=== PATIENT | female | born 1985 | race Caucasian/White ===

== ENCOUNTER 2022-05-08 12:34 | Emergency (ER) | payer OTHER ==
[~2022-05-08] VITALS: Ht 162.6 cm; Wt 93.1 kg
[~2022-05-08 12:34] MED LIST: TYLENOL SINUS
[2022-05-08 13:22] VITALS: BP 140/97
--- NOTE | 2022-05-08 14:32 | NUR ---
PT AMBULATED TO ER BED 3
[2022-05-08] MEDS ORDERED: NACL 0.9% 1,000 ML IV ONE (14:45)
[2022-05-08] MEDS ORDERED: PROCHLORPERAZINE 10 MG/2 ML VIAL IVP ONE (14:45)
--- NOTE | 2022-05-08 14:54 | NUR ---
Pt taken to CT via wheelchair.
[2022-05-08 16:00] VITALS: BP 127/70
[2022-05-08] MEDS ORDERED: ACET-1194 PO (18:16)
--- NOTE | 2022-05-08 18:24 | NUR ---
Patient does not wish to proceed with medical care recommended by [facility]. Patient given information related to possible complications, up to and including , which could occur as a result of leaving hospital at this time. Patient verbalizes understanding of risks involved leaving against medical advice. Patient has signed AMA form.
== END 2022-05-08 18:25 | disposition left against medical advice (07) ==
LOC: MED 12:34
DX: R51.9 Headache, unspecified (principal); R03.0 Elevated blood-pressure reading, without diagnosis of hypertension
CPT/HCPCS: 70450; 81025; 96361; 96374; 99284; J0780; J7030

== ENCOUNTER 2024-05-05 08:07 | Emergency (ER) | payer OTHER ==
[~2024-05-05] VITALS: Ht 162.6 cm; Wt 93.0 kg
[~2024-05-05 08:07] MED LIST changes: +ACET-1194 PO
[2024-05-05 08:18] VITALS: BP 132/79; PULSE 91; RESP 18; TEMP 97; O2SAT 100
[2024-05-05 09:00] LABS: BASOPHILS # (AUTO) 0.1 K/uL (0.00-0.22); BASOPHILS % (AUTO) 0.7 % (0.0-2.0); EOSINOPHILS # (AUTO) 0.1 K/uL (0-0.4); EOSINOPHILS % (AUTO) 1.6 % (0.0-4.0); HEMATOCRIT 39.9 % (36-48); LYMPHOCYTES % (AUTO) 27.9 % (20.5-51.1); MEAN CORPUSCULAR HEMOGLOBIN 26 pg (27-31); MEAN CORPUSCULAR HGB CONC 33 g/dL (33-37); MEAN CORPUSCULAR VOLUME 81.1 fL (80-94); MONOCYTES # (AUTO) 0.5 K/uL (0.8-1.0); MONOCYTES % (AUTO) 7.1 % (1.7-9.3); NEUTROPHILS # (AUTO) 4.6 K/uL (1.8-7.7); NEUTROPHILS % (AUTO) 62.7 % (42.2-75.2); PLATELET COUNT (AUTO) 212 K/uL (140-450); RED BLOOD CELL COUNT(AUTO) 4.93 MIL/uL (4.20-5.40); RED CELL DISTRIBUTION WIDTH 15.4 % (11.6-13.7); WHITE BLOOD COUNT (AUTO) 7.3 K/uL (4.8-10.8)
[2024-05-05 09:02] LABS: BILIRUBIN,URINE NEGATIVE (NEGATIVE); BLOOD, URINE TRACE-I (NEGATIVE); COLOR,URINE YELLOW (YELLOW); LEUKOCYTE ESTERASE ,URINE 1+ (NEGATIVE); NITRITE, URINE NEGATIVE (NEGATIVE); PH,URINE 6.5 (5.0-9.0); PROTEIN,URINE NEGATIVE (NEGATIVE); UGLUCOSE NEGATIVE (NEGATIVE); UROBILINOGEN,URINE 0.2 EU/dL (0.2 - 1)
[2024-05-05 09:52] LABS: ALBUMIN 3.7 g/dL (3.4-5.0); BILIRUBIN,DIRECT 0.1 mg/dL (0.0-0.3); TOTAL BILIRUBIN 0.5 mg/dL (0.0-1.0); TOTAL PROTEIN, SERUM 7.5 g/dL (6.4-8.2)
[2024-05-05 10:01] LABS: BACTERIA,URINE FEW /HPF (None Seen); RBC,URINE 0-5 /HPF (0-5); SQUAMOUS EPITHELIAL CELL,UR 4-10 (MOD) /LPF (0-3 (FEW))
[2024-05-05 10:02] LABS: APPEARANCE,URINE SLIGHTLY HAZY (CLEAR)
[2024-05-05 10:28] LABS: ANION GAP 12.6 (8-16); CALCIUM 8.7 mg/dL (8.5-10.1); CARBON DIOXIDE 25.1 mmol/L (21-32); CREATININE 0.7 mg/dL (0.6-1.3); POTASSIUM 3.7 mmol/L (3.5-5.1)
[2024-05-05] MEDS ORDERED: ONDA-188 SL (10:45)
[2024-05-05] MEDS ORDERED: CEPH-588 PO (10:45)
[2024-05-05 10:50] VITALS: BP 128/79; PULSE 88; RESP 16; TEMP 97.9; O2SAT 100
== END 2024-05-05 10:50 | disposition home or self-care (01) ==
LOC: MED 08:07
DX: O20.0 Threatened abortion (principal); O23.41 Unspecified infection of urinary tract in pregnancy, first trimester; Z3A.00 Weeks of gestation of pregnancy not specified; N39.0 Urinary tract infection, site not specified; Z90.49 Acquired absence of other specified parts of digestive tract; Z79.899 Other long term (current) drug therapy
CPT/HCPCS: 36415; 76817; 80048; 80076; 81001; 81025; 83690; 84702; 85025; 86900; 86901; 87086; 99284; Q0092